=== PATIENT | male | born 1985 | race Caucasian/White ===

== ENCOUNTER 2022-01-14 16:12 | Emergency (ER) | payer SELFPAY | END 2022-01-14 18:25 | disposition home or self-care (01) | LOC: JD.ED 16:12 | DX: F11.23 Opioid dependence with withdrawal (principal); G47.00 Insomnia, unspecified | CPT/HCPCS: 99283 ==

== ENCOUNTER 2022-01-28 17:04 | Emergency (ER) | payer OTHER ==
[2022-01-28] MEDS ORDERED: Sodium Chloride 0.9% 10 ML Syringe FLUSH PRN (17:52)
[2022-01-28] MEDS ORDERED: fentaNYL 100 MCG/2 ML SDV IVPUSH ONE ×2 (17:52→18:26)
[2022-01-28] MEDS ORDERED: Midazolam 1 MG/ML 2 ML SDV IVPUSH ONE (18:26)
[2022-01-28] MEDS ORDERED: HYDROmorphone 1 MG/ML Syringe IVPUSH ONE (18:58)
[2022-01-28] MEDS ORDERED: Labetalol 100 MG/20 ML MDV IVPUSH ONE (19:36)
[2022-01-28] MEDS ORDERED: Cephalexin 500 MG Cap PO ONE (20:04)
== END 2022-01-28 20:20 | disposition home or self-care (01) ==
LOC: JD.ED 17:04
DX: S61.243A Puncture wound with foreign body of left middle finger without damage to nail, initial encounter (principal); W45.0XXA Nail entering through skin, initial encounter; Y99.0 Civilian activity done for income or pay
CPT/HCPCS: 11730; 73140; 96374; 99283; A9270; J1170; J2250; J3010; J3490; 99284